=== PATIENT | female | born 1990 | race Caucasian/White ===

== ENCOUNTER 2021-01-07 09:39 | Emergency (ER) | payer SELFPAY ==
[~2021-01-07] VITALS: Ht 165 cm; Wt 56.6 kg
--- NOTE | 2021-01-07 11:00 | ED EENT ---
History of Present Illness General Chief Complaint: Dental Problems/Pain Stated Complaint: ABCESS TOOTH Nursing Triage Note: PT PRESENTS TO ED VIA POV FROM HOME WITH COMPLAINTS OF L UPPER DENTAL PAIN X 2 DAYS. REPORTS SHE HAD SOME LEFT OVER ANTIBIOTICS SHE HAS BEEN TAKING BUT IT DOES NOT SEEM TO BE HELPING. Source: patient History of Present Illness Date Seen by Provider: Jan 07, 2021 Time Seen by Provider: 10:57 Initial Comments Patient is a 30-year-old female who presents ED with left upper dental pain. She noticed some pain and discomfort 2 days ago. She noticed some mild left- sided facial swelling. Pain with eating. She noted purulent drainage from the left upper molar. History of dental cavities and similar infections in her teeth. She has been taking ibuprofen without much improvement. She denies headache, nausea, vomiting, diarrhea, neck pain, shortness of breath, cough, chest pain Allergies and Home Medications Allergies Coded Allergies: No Known Drug Allergies (Unverified , 01/07/21) Patient Home Medication List Home Medication List Reviewed: Yes Naproxen (Naproxen) 500 Mg Tablet, 500 MG PO Q12H Prescribed by: JERE WAGNER on 01/07/21 1105 Penicillin V Potassium (Penicillin V Potassium) 500 Mg Tablet, 500 MG PO QID Prescribed by: JERE WAGNER on 01/07/21 1105 Review of Systems Review of Systems Constitutional: see HPI Eyes: See HPI Ears: See HPI Nose: see HPI Mouth: pain, swelling, other (Dental pain) Throat: no symptoms reported; denies pain, denies swelling Respiratory: No cough, No dyspnea on exertion, No hemoptysis, No orthopnea Cardiovascular: No chest pain, No edema, No Hx of Intervention Gastrointestinal: No RUQ, No LUQ, No RLQ, No LLQ, No abdominal pain Musculoskeletal: No back pain, No gout, No joint pain Skin: No see HPI, No change in color, No change in hair/nails All Other Systems Reviewed Negative Unless Noted: Yes Past Kscnetf-Cgavay-Prdogi Hx Patient Social History Tobacco Use?: Yes Tobacco type used: Cigarettes Smoking Status: Current Everyday Smoker Smokeless Tobacco Frequency: Current Everyday User E-Cig or Vaping type used: Nicotine Substance use?: No Alcohol Use?: No Pt feels they are or have been: No Immunizations Up To Date First/Initial COVID19 Vaccinat: NONE Physical Exam Vital Signs Vital Signs - First Documented 01/07/21 09:58 Temp 35.9 Pulse 81 Resp 20 B/P (MAP) 99/66 (77) Pulse Ox 97 Height, Weight, BMI Height: '" Weight: lbs. oz. kg; 20.00 BMI Method: General Appearance: WD/WN, no apparent distress Eyes: bilateral eye normal inspection, bilateral eye PERRL, bilateral eye EOMI Ears: bilateral ear auricle normal, bilateral ear canal normal, bilateral ear TM normal Nose: No discharge Mouth/Throat: other (Poor dentition throughout. Extensive decay noted left upper molars with gum erythema. No fluctuant mass. No active drainage. 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 Concerning for apical abscess. Left-sided facial swelling. No active drainage. No palpable abscess needing incision and drainage. Discussed a dental block patient refused at this time. Will discharge with penicillin VK and naproxen. Recommend dental outpatient follow- up. If worsening symptoms such as increased swelling, redness to return back to ED for further evaluation. Patient has no other complaints. Patient does not appear toxic. Impression Primary Impression: Dental abscess Disposition: 01 HOME, SELF-CARE Condition: Improved Departure-Patient Inst. Decision time for Depature: 11:00 Referrals: NO,LOCAL PHYSICIAN (PCP) Primary Care Physician Patient Instructions: Dental Pain (DC) Add. Discharge Instructions: Recommend following up with a dentist for further evaluation. If worsening symptoms return back to ED. All discharge instructions reviewed with patient and/or family. Voiced understanding. Scripts Naproxen (Naproxen) 500 Mg Tablet 500 MG PO Q12H for dental pain for 10 Days, #20 TAB Prov: LAITH GARCIA 01/07/21 Penicillin V Potassium (Penicillin V Potassium) 500 Mg Tablet 500 MG PO QID for 7 Days, #28 TAB Prov: LAITH GARCIA 01/07/21 LAITH GARCIA Jan 07, 2021 11:00
[2021-01-07] MEDS ORDERED: NAPR-915 PO (11:03)
[2021-01-07] MEDS ORDERED: PENI500T PO (11:03)
[2021-01-07 11:08] VITALS: BP 99/66
== END 2021-01-07 11:08 | disposition home or self-care (01) ==
LOC: ER 09:45
DX: K04.7 Periapical abscess without sinus (principal); F17.210 Nicotine dependence, cigarettes, uncomplicated
CPT/HCPCS: 99282